=== PATIENT | female | born 1955 | race Caucasian/White ===

== ENCOUNTER → 2019-11-24 08:16 | Outpatient (CLI) | payer OTHER, SELFPAY ==
[2019-11-25 09:33] LABS: COVID19 Sendout Not Detected (Not Detect)
== END ==
PROVIDERS: PCP Internal Medicine; Visit Provider Physician Assistant
DX: Z11.59 Encounter for screening for other viral diseases (principal)
CPT/HCPCS: 87635

== ENCOUNTER 2019-11-27 08:12 | Day surgery (SDC) | payer OTHER, SELFPAY ==
[2019-11-22 13:52] VITALS: BMI 27.2
[2019-11-27] VITALS (19 sets, daily range): BP systolic 92–167; BP diastolic 53–108; PULSE 74–98; RESP 14–20; TEMP 35.8–36.5; O2SAT 94–100; BMI 27.3
--- NOTE | 2019-11-27 08:35 | DI.RAD.S_ITS ---
PROCEDURE: XR KNEE LT 1TO2V INDICATIONS: post op films TECHNIQUE: 2 view(s) of the knee acquired. [facility] [place] XR KNEE ARTHRITIC SERIES LT, 05/08/2019, 9:20. FINDINGS: Bones: Patient is status post knee joint arthroplasty. Hardware components are in expected positions. Visualized bony structures are intact. Soft tissues: Overlying postoperative changes are noted. IMPRESSION: Expected postoperative appearance. Dictated by: David Waters M.D. on 11/27/2019 at 16:59 Approved by: David Waters M.D. on 11/27/2019 at 17:00
[2019-11-27] MEDS: ACETAMINOPHEN 325 MG TABLET 975 MG PO (08:51)
[2019-11-27] MEDS: CELECOXIB 200 MG CAPSULE PO (08:52)
[2019-11-27] MEDS: LACTATED RINGERS 1,000 ML 42 ML IV (08:52)
--- NOTE | 2019-11-27 09:18 | PM.PREOP ---
Pre-operative Note COVID-19 COVID-19 status: Negative Result date/Date tested (Pos, Neg/Pending): 11/24/19 Interval Note History & Physical reviewed/Exam performed by Physician: Yes Changes to H&P: No
--- NOTE | 2019-11-27 09:49 | PM.OP.1 ---
Operative Date/Time/Diagnoses Date of procedure: 11/27/19 Time of procedure: 12:11 Pre-op diagnosis: Left knee osteoarthritis Post-op diagnosis: same Procedure & Clinicians Procedure: Left total knee replacement Same procedure as scheduled: Yes Indications: The patient has had progressively worsening left knee pain with radiographic changes consistent with arthritis. Non-operative management has failed and the patient has requested total knee replacement. The risks, benefits and alternatives to surgery were discussed with the patient prior to proceeding. Risks discussed included, but were not limited to, failure to relieve pain, stiffness, infection, nerve damage, deep venous thrombosis, pulmonary embolism, stroke, coma, heart attack, permanent paralysis and , as well as the potential need for eventual revision of the prosthetic. Surgeon: Vito Monreal Weaving Machine Operator: Lolita Redman Click Yes if Unassisted: No Anesthesia Type: General, Spinal and Local Operative Notes Findings: Severe lateral compartment osteoarthritis with moderate involvement of the patellofemoral joint and medial joint. Closure Type: primary Specimen(s): none sent Prosthetic devices, grafts, tissues, transplants, or devices: Implants used in this procedure were manufactured by the [employer] and included the BCS II Journey total knee replacement with a size 7 left Oxinium femoral component, a size 6 non porous tibial base plate, a 9 mm cross-linked polyethylene insert and a 32 mm oval Adamaris II patellar component. Applied: implant(s) Estimated Blood Loss (mL): 25 Blood products transfused: none Tourniquet time (min): 54 Procedure in detail: The patient was seen in the pre-operative area, where the left knee was identified as the operative site and this was marked with my initials. The patient received pre-operative antibiotics, and was taken to the operating room and placed on the operative table in the supine position. After satisfactory anesthesia, a chief of anesthesiology out? was performed. The left leg was encircled with a tourniquet about the proximal thigh, and the leg was prepared from the toes to the tourniquet with ChloroPrep in the usual fashion and draped through sterile drapes. The leg was elevated and exsanguinated with Eschmark bandage and the tourniquet inflated to 250 mmHg pressure. The knee was approached through an approximately 18 cm incision centered over the patella and carried into the knee through a medial parapatellar arthrotomy. The anterior osteophytes and soft tissues were removed. The rotational landmarks of Buckley's line and the transepicondylar axis were marked on the femur with electrocautery, and intramedullary guide holes for the femur and tibia were created. The distal femoral cut was made in 6 degrees of valgus using the intramedullary guide at the primary cut setting. The proximal tibial cut was then made using the intramedullary guide, taking 7 mm of bone off the less involved medial side. The extension gap was checked and the rotation of the femoral component confirmed with the gap balancing blocks. The anterior, posterior and chamfer cuts were then made. The posterior osteophytes and soft tissues were then removed. The posterior capsule was injected with part of a mixture of 60 ml 0.25% Marcaine mixed with 20 ml Exparel and 4 mg of morphine for post-operative pain control. The remainder of this mixture was injected into the capsule and subcutaneous tissues during cement curing. The tibia was prepared with the rotation set by an extra medullary guide. Trial tibial and femoral components were then placed and the intercondylar notch cut through the femoral trial. Range of motion was 0-135 degrees, with good stability throughout the range. The patella was then cut to accommodate the patellar prosthetic. There was no need for a lateral release. The trials were then removed, and the femoral hole plugged with a bone plug. The bone was prepared with pulsatile lavage, and dried with a sponge. Cement was applied and the final prosthetics placed. Excess cement was removed during and after cement curing. After confirming there was no extruded cement posteriorly, the final tibial insert was placed. The knee was copiously irrigated and the tourniquet deflated. Hemostasis was obtained. The capsule was closed with interrupted # 2 polyester sutures. The subcutaneous layer was closed with 3-0 Vicryl, and the skin with a running 3-0 V-Lock suture and Dermabond. An Aquacel Ag dressing was applied and the patient was taken to recovery having tolerated the procedure well. Complications: none Post-operative Condition: stable Disposition: PACU Plan for aftercare: The patient will be maintained on a standard total knee replacement protocol with weight bearing as tolerated. The patient will receive aspirin and sequential compression devices for DVT prophylaxis. The patient will be discharged home when safe for the home environment.
[2019-11-27] MEDS: CEFAZOLIN 2 GM/100 ML FROZ.PIGGY IV (10:25)
[2019-11-27] MEDS: TRANEXAMIC ACID 1,000 MG VIAL 1000 MG INJ ×2 (10:39→11:44)
--- NOTE | 2019-11-27 10:52 | SUR.OPER ---
Supine on padded OR bed. Pillow under head, arms secured on padded armboards <90 degree abduction. Safety belt across torso. Non-operative leg secured with tape over blanket over lower leg. Operative leg secured in DeMayo/Jose positioner.
[2019-11-27] MEDS: MORPHINE 4 MG/ML INJ INJ (11:01)
[2019-11-27] MEDS: BUPIVACAINE LIPOSOME 266 MG/20 ML VIAL INJ (11:01)
[2019-11-27] MEDS: BUPIVACAINE 0.25% W/ EPI 30 ML VIAL 60 ML INJ (11:01)
[2019-11-27] MEDS: HYDROMORPHONE 2 MG INJ IV ×8 (12:28→13:13)
[2019-11-27] MEDS: OXYCODONE IR 5 MG TABLET PO ×2 (12:32→13:00)
--- NOTE | 2019-11-27 13:04 | SUR.PHASEI ---
Patient arrived in PACU w c\o 10\[address] Francois gave 100 mcg of fentanyl. Patient cont to c\o 10\10 pain after I gave 2 mg Diluadid and po oxycodone.
--- NOTE | 2019-11-27 13:27 | SUR.PHASEI ---
Patient is crying. When I ask what is wrong she told me she just feels emotional. Patient refusing nasal cannula. States she is claustraphobic.
--- NOTE | 2019-11-27 14:02 | SUR.PHASEI ---
Report given and patient transferred. Patient stopped crying and rated pain 8/10. Patient stated she was crying 2 to lawsuit regarding operation.
[2019-11-27] MEDS: LACTATED RINGERS 1,000 ML 100 ML IV (14:31)
[2019-11-27] MEDS: ACETAMINOPHEN 325 MG TABLET 650 MG PO ×2 (14:34→21:20)
[2019-11-27] MEDS: IBUPROFEN 400 MG TABLET PO ×2 (16:18→21:20)
[2019-11-27] MEDS: OXYCODONE IR 10 MG TABLET PO ×2 (16:18→19:17)
--- NOTE | 2019-11-27 17:03 | PT.IIE ---
Current Diagnoses Unilateral post-traumatic osteoarthritis, left knee (11/27/19) Other tear of lateral meniscus, current injury, right knee, sequela (11/27/19) Surgery Performed Operation Date: 11/27/19 10:15 Actual Procedures p Total Knee Arthroplasty(Left) - Vito Monreal MD Surgical History (Last Updated 11/24/19 @ 11:09 by Shabnam Ruiz, RN) History of bilateral carpal tunnel release (Acute) History of (Acute) Hx of appendectomy (Acute) Hx of arthroscopy of left knee (Acute) Medical History (Last Updated 11/24/19 @ 11:12 by Shabnam Ruiz RN) HTN (hypertension) (Acute) IBS (irritable bowel syndrome) (Acute) Osteoarthritis (Acute) RBBB (right bundle branch block) (Acute) Seasonal allergies (Acute) Physical Therapy Inpatient Evaluation/Re-Eval M1 PT/OT-IP Prior Functional Status Start: 11/27/19 16:13 Freq: NEEDED Status: Active Protocol: Document 11/27/19 16:46 AW (Rec: 11/27/19 17:03 AW [email or web address]) Medical Review Prior Functional Status Medical History Reviewed Yes Communication No known deficits. Mobility and Gait Independent without AD and without distance or time limit for ambulation. Activities of Daily Living and IADL's Independent Social History Household Members none Living Arrangements House Number of Floors (Floors) Two Floors Number of Stairs To Enter/Railing? 8 ISABEL with wide bilateral rails. Pt enters on level with living room, kitchen, guest bedroom. She climbs 8 steps with a wall for support on her left side to the level with her bedroom. 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 She lives alone in [facility]. Her son, Henry, will be checking on her a few times a day but no one is planning to stay with the pt at discharge. M2 PT-IP Current Condition Start: 11/27/19 16:13 Freq: NEEDED Status: Active Protocol: Document 11/27/19 16:46 AW (Rec: 11/27/19 17:03 AW [email or web address]) Physical Therapy Current Condition Current Condition Evaluation Date 11/27/19 Treatment Diagnosis L TKA; difficulty in walking Onset Date 11/27/19 Weight Bearing Status Weight Bearing Status Weight Bear as Tolerated M3 PT-IP Subjective Start: 11/27/19 16:13 Freq: NEEDED Status: Active Protocol: Document 11/27/19 16:46 AW (Rec: 11/27/19 17:03 AW [email or web address]) Subjective Physical Therapy Visit Type Type Initial Evaluation Visit Start Time 16:20 Visit Stop Time 16:44 Total Visit Minutes 24 Physical Therapy Visit Comments Patient Comments Pt is willing to participate with PT Patient Goals To go home with limited assist . Therapy Pain Assessment Pain When Pain Assessed During Mobility Pain Present Pain Present Pain Reported Location Left Knee Intensity 6 Pain Behaviors Facial Grimacing,Wincing Pain Management Techniques Apply Cold,Timing of Activity with Medications M4 PT-IP Mobility and Gait Start: 11/27/19 16:13 Freq: NEEDED Status: Active Protocol: Document 11/27/19 16:46 AW (Rec: 11/27/19 17:03 AW [email or web address]) PT-Bed Mobility Assessment Supine to Sit Supine to Sit Standby Assistance,Head of Bed Elevated Scooting Scooting to Edge of Bed Standby Assistance PT-Transfer Assessment Sit to and From Stand Sit to and from Stand Contact Guard Assistance Equipment Transfer Assistive Device Gait Belt,Front Wheeled Walker Orthotic/Prosthetic Devices or Brace: No Transfers Transfer Destination Chair Transfer Technique pt ambulated with FWW Transfer Ability Level of Assist Contact Guard Assistance,1 Person Assistance,Use of Upper Extremities Comments Mobility Comments Pt was sitting up in bed when PT arrived. BP was 114/68 HR 93. Pt states she has an adjustable bed at home. She completed supine to sit with HOB elevated SBA and sat EOB without UE support. She stood from the bed with FWW CGA and practiced weight shifting in standing. She then advanced the walker and ambulated in the room a total of 15 feet including a tight turn with FWW SBA before transferring to the chair CGA. Pt reported increased pain and fatigue and requested to stay in the chair. BP after activity was 132/72 HR 96. She was positioned in the chair with call light and all needs in reach. Gait Assessment Gait Gait Assistance Required: Standby Assistance Distance (Feet) 15 Able to Maintain Weight Bearing Status Yes During Gait Assistive Devices Assistive Device Gait Belt,Front Wheeled Walker Orthotic/Prosthetic Devices or Brace: No Gait Deviations General Gait Pattern Antalgic,Decreased Stride Length,Decreased Feet Clearance,Flexed Trunk,Step-to Gait Factors Limiting Gait Function Factors Limiting Gait Function Decreased Activity Tolerance, Decreased Strength,Limited Range of Motion,Pain,Poor Balance Comments Gait Comments See mobility comments for details. Stair Climbing Assessment Comments Stair Climbing Comments Not assessed due to pt pain and fatigue. PT-Balance Assessment Sitting Balance and Reactions Static Sitting Balance Ability Normal Dynamic Sitting Balance Ability Normal Standing Balance and Reactions Static Standing Balance Ability Good Dynamic Standing Balance Ability Good Device Used FWW M5 PT-IP Objective Assessments Start: 11/27/19 16:13 Freq: NEEDED Status: Active Protocol: Document 11/27/19 16:46 AW (Rec: 11/27/19 17:03 AW [email or web address]) Orientation Orientation/Cognition Level of Alertness Alert Orientation Name,Day of Week,Place, Situation Language Function Ability No Deficits Noted Safety Awareness Understands Safety Issues Memory Description No Deficits Noted Gross Range of Motion Upper Extremity ROM Assessment Within Functional Limits Lower Extremity ROM Assessment Left Impaired Strength Upper Extremity Strength Assessment Within Functional Limits Lower Extremity Strength Assessment Left Impaired Comments Strength Comments RLE grossly 5/5 Coordination Assessment Gross Coordination Gross Coordination WNL Sensation Assessment Sensation Gross Sensation WNL Muscle Tone Muscle Tone WNL Yes M6 PT-IP Treatment Start: 11/27/19 16:13 Freq: NEEDED Status: Active Protocol: Document 11/27/19 16:46 AW (Rec: 11/27/19 17:03 AW [email or web address]) Physical Therapy Treatment Exercises Exercises Ankle Pumps,Quad Sets,Heel Slides,Passive Knee Extension Hang Education Education Provided Precautions,Weight Bearing Status,Post-Op Packet,Safety Other Treatments Other Treatment Performed Provided education on role of PT, plan of care, weightbearing status, and safe use of FWW. M7 PT-IP Assessment and Plan Start: 11/27/19 16:13 Freq: NEEDED Status: Active Protocol: Document 11/27/19 16:46 AW (Rec: 11/27/19 17:03 AW [email or web address]) PT Summary Assessment and Plan Potential Rehabilitation Potential Good Status of Condition at Evaluation Evolving Summary Impairments Pain,ROM,Strength,Balance,Bed Mobility,Transfers,Gait, Activity Tolerance Assessment Summary Isaura is a 63 yo woman seen for PT evaluation on POD0 following L TKA. She is independent in all regards at baseline. On evaluation, she required SBA to CGA with all mobility which was limited due to pain and fatigue. Pt states her son will check on her as needed when she goes home but she has not planned for anyone to stay with her. PT anticipates she will be safe to discharge to home environment with assist and outpatient PT once medically cleared. Pt must clear stairs before discharge. She may need to consider staying on level vial marker if unable to manage stairs independently. Goals Bed Mobility Goal Independent Transfer Goal Independent,Front Wheeled Walker Gait Goal Independent,Front Wheel Walker Gait Distance 150 Other Goals - up/down 16 stairs with left rail ascending IND Days to Meet Goals 3 Frequency of Treatment Frequency Of Treatment Twice a Day Treatment Plan Physical Therapy Treatment Plan Bed Mobility Training,Transfer Training,Gait Training, Therapeutic Exercise,Balance Retraining,Post Op Education, Discharge Planning,Hot or Cold Pack Other Recommendations and Next Treatment gait training with FWW; stair Focus training; review ther ex Recommendations To Nursing Amount of Assist Needed 1 Person Assist Discharge Recommendations PT Discharge Recommendations Home with Assistance, Outpatient PT Equipment Needed for Home Before may need raised toilet seat Discharge Transportation Needs at Discharge Private Vehicle
[2019-11-27] MEDS: DULOXETINE 20 MG CAPSULE PO (21:20)
[2019-11-27] MEDS: DOCUSATE 100 MG CAPSULE PO (21:20)
[2019-11-27] MEDS: ALPRAZolam 0.5 MG TABLET 1 MG PO (23:57)
[2019-11-28] VITALS: BP 127/60; PULSE 78
[2019-11-28] MEDS: LACTATED RINGERS 1,000 ML 100 ML IV (01:25)
[2019-11-28] MEDS: OXYCODONE IR 10 MG TABLET PO ×3 (04:56→11:24)
[2019-11-28 05:30] VITALS: BP 117/76; PULSE 82; RESP 16; TEMP 36.6; O2SAT 98
[2019-11-28 05:48] LABS: Hematocrit 31.2 % (36-46); Hemoglobin 10.6 g/dL (12.0-16.0)
[2019-11-28] MEDS: LEVOTHYROXINE 100 MCG TABLET PO (05:53)
--- NOTE | 2019-11-28 07:54 | PM.DS.1 ---
History of Present Illness History of Present Illness Date Patient Seen: 11/28/19 Time Patient Seen: 07:54 Chief complaint: LT TKA *OPB* Narrative: The history and physical is contained in the chart and her previously completed note. Please refer to that note for this information. Discharge Providers Provider Discharge Date: 11/28/19 Primary care physician: Camron Daniel MD Consults: 11/27/19 08:35 Consult to Anesthesiology Routine Comment: Consulting Provider: Anesthesiologist Reason for consultation: Regional block for post operative pain control 11/27/19 13:57 Consult to Discharge Planning Routine Comment: Consult to Physical Therapy Evaluate & Treat Comment: Physician Instructions: postop TKA protocol Discharge provider: Vito Monreal MD Summary Hospital Course Discharge Diagnosis: 1. Left knee posttraumatic osteoarthritis 2. Post hemorrhagic anemia Hospital Course: The patient was admitted to the hospital and taken directly to the operating room where she underwent a left total knee replacement without complications. On postoperative day 1 she had reasonable pain control. She was awaiting physical therapy. The patient has a flight of stairs to get into her home and 1 that must be negotiated when she is in the home. At the time of this dictation the plan is for discharge later today if she manages well enough with physical therapy to make it safe. Status at Discharge Cognitive/behavioral status at discharge: oriented Functional status at discharge: uses cane/walker Overall status at discharge: patient is progressing back to baseline Time Spent with Patient Time spent: Less than 30 minutes Exam Vital Signs (past 8 hours): - 11/27/19 23:55 11/28/19 00:00 11/28/19 05:30 Temperature 97.7 F 97.8 F Pulse Rate 78 82 Respiratory Rate 18 16 Blood Pressure 103/56 L 127/60 117/76 Pulse Oximetry 96 98 Oxygen Delivery Method Room Air Oxygen Flow Rate 0 Narrative Exam Narrative: Left knee wound is dressed with no drainage on the bandage. Calf is soft. Light touch and motion are intact in the left lower extremity. Objective Labs Result Diagrams: 11/28/19 04:44 Labs: Laboratory Results - last 24 hr 11/28/19 04:44 Hgb 10.6 L Hct 31.2 L Discharge Assessment & Plan Assessment and Plan Assessment: Stable postoperative day 1 status post left total knee replacement. She has the anticipated post hemorrhagic anemia. Plan of Treatment: Physical therapy today. Likely discharge home provided she is able to satisfactorily managed stairs. Discharge prescriptions for oxycodone and Vistaril have been printed. Follow-up will be in my office in 10-14 days. Discharge Plan Discharge Plan Patient Disposition: Home Discharge Med Rec/Prescriptions Prescriptions: New acetaminophen 325 mg Tablet 650 mg PO TID 30 Days Qty: 180 RF: 0 ibuprofen 400 mg Tablet 400 mg PO Q4HR 30 Days RF: 0 oxycodone 5 mg Tablet 5 mg PO Q4H PRN (Reason: Pain, Moderate (4-6)) Qty: 40 RF: 0 hydroxyzine pamoate 25 mg Capsule 25 mg PO Q6HR PRN (Reason: Nausea) Qty: 40 RF: 0 Continued fexofenadine [Princess Allergy] 60 mg Tablet 60 mg PO BID PRN (Reason: Seasonal allergies) RF: 0 aspirin 325 mg Tablet 325 mg PO DAILY RF: 0 alprazolam 1 mg Tablet 1 mg PO BEDTIME PRN (Reason: Sleep) RF: 0 spironolactone 100 mg Tablet 100 mg PO DAILY RF: 0 potassium chloride 10 mEq Tablet Extended Release 10 meq PO DAILY RF: 0 ondansetron 8 mg Tablet,Disintegrating 8 mg PO Q8H PRN (Reason: Nausea) RF: 0 hydrochlorothiazide 25 mg Tablet 25 mg PO DAILY RF: 0 metoprolol succinate 25 mg Tablet Extended Release 24 Hr 25 mg PO DAILY RF: 0 duloxetine 20 mg Capsule,Delayed Release(Dr/Ec) 20 mg PO BID RF: 0 levothyroxine 100 mcg Capsule 100 mcg PO DAILY RF: 0 acyclovir 400 mg Tablet 800 mg PO Q4H PRN (Reason: Breakout/flareup) RF: 0 Discontinued hydrocodone-acetaminophen 5-325 mg Tablet 2 tab PO Q4-6H PRN (Reason: Pain) RF: 0 Follow up/Referrals: Vito Monreal MD [Physician] - 2 Weeks Discharge Orders: Discharge (Order); Ordered 11/28/19 Ordered By: Vito Monreal Provider Discharge Instructions Diet: Diet as Tolerated and Regular Activity: You may bear weight as tolerated on your left leg Cold/Heat Therapy: Apply ice for 15 minutes of every hour as needed to the left knee. Skin/Wound/Dressing Care Report to your healthcare provider any signs of infection, such as:: chills, fever, night sweats, increased pain, unusual drainage and unusual redness Dressing: Remove the Edu wrap 3 days after surgery. You may then shower normally. Leave the deeper dressing in place until follow-up. If the center strip of the deeper dressing becomes saturated with either water or blood, please call the office to have it evaluated. Visit Report/Discharge Packet Instructions: DI for Knee Replacement Stand Alone Forms: Surgery Discharge Discharge Data Primary Care Provider: Camron Daniel Attending Provider: Vito Monreal Quality VTE Deep Vein Thrombosis/Pulmonary Embolism Present on Admission: No
[2019-11-28 08:00] VITALS: BP 111/63; PULSE 69; RESP 15; TEMP 36.7; O2SAT 97
[2019-11-28] MEDS: DOCUSATE 100 MG CAPSULE PO (08:25)
[2019-11-28] MEDS: SPIRONOLACTONE 50 MG TABLET 100 MG PO (08:25)
[2019-11-28] MEDS: DULOXETINE 20 MG CAPSULE PO (08:25)
[2019-11-28] MEDS: POTASSIUM CHLORIDE 10 MEQ TAB PO (08:26)
[2019-11-28] MEDS: hydroCHLOROthiazide 25 MG TABLET PO (08:26)
[2019-11-28] MEDS: METOPROLOL ER 25 MG TABLET PO (08:26)
[2019-11-28] MEDS: ASPIRIN 325 MG TABLET PO (08:26)
[2019-11-28] MEDS: ACETAMINOPHEN 325 MG TABLET 650 MG PO (08:26)
[2019-11-28] MEDS: LORATADINE 10 MG TABLET PO (08:27)
--- NOTE | 2019-11-28 10:23 | PT.IPTN ---
Current Diagnoses Unilateral post-traumatic osteoarthritis, left knee (11/27/19) Other tear of lateral meniscus, current injury, right knee, sequela (11/27/19) Surgery Performed Operation Date: 11/27/19 10:15 Actual Procedures p Total Knee Arthroplasty(Left) - Vito Monreal MD Physical Therapy Treatment Note M2 PT-IP Current Condition Start: 11/27/19 16:13 Freq: NEEDED Status: Active Protocol: Document 11/27/19 16:46 AW (Rec: 11/27/19 17:03 AW [id number]) Physical Therapy Current Condition Current Condition Evaluation Date 11/27/19 Treatment Diagnosis L TKA; difficulty in walking Onset Date 11/27/19 Weight Bearing Status Weight Bearing Status Weight Bear as Tolerated M3 PT-IP Subjective Start: 11/27/19 16:13 Freq: NEEDED Status: Active Protocol: Document 11/28/19 09:52 KS (Rec: 11/28/19 11:55 KS [id number]) Subjective Physical Therapy Visit Type Type Treatment Note Visit Start Time 09:52 Visit Stop Time 10:23 Total Visit Minutes 31 Number of DIRECTOR OF QUALITY CONTROL Visits 1 Physical Therapy Visit Comments Patient Comments Pt is willing to participate with PT Patient Goals To go home with limited assist . M4 PT-IP Mobility and Gait Start: 11/27/19 16:13 Freq: NEEDED Status: Active Protocol: Document 11/28/19 09:52 KS (Rec: 11/28/19 11:55 KS [id number]) PT-Bed Mobility Assessment Sit to Supine Sit to Supine Standby Assistance Scooting Scooting to Edge of Bed Standby Assistance PT-Transfer Assessment Sit to and From Stand Sit to and from Stand Standby Assistance Equipment Transfer Assistive Device Gait Belt,Front Wheeled Walker Orthotic/Prosthetic Devices or Brace: No Transfers Transfer Destination Bed,Wheelchair Transfer Technique pt ambulated with FWW Transfer Ability Level of Assist Standby Assistance,1 Person Assistance,Use of Upper Extremities Comments Mobility Comments Pt leaving bathroom upon arrival from therapy and able to ambulate to sink and reamin balanced for hygiene SBA. Pt then ambulated to and stand<> sit in w/c SBA for transfer to stairs for energy conservation. Pt then ascended /descended 3 steps w/ L rail and step to pattern SBA w/o cues needed. Pt completed stairs 3 times, totaling 9 steps all SBA. Pt then transported back to room in w/ c and then ambulated from w/c to bed SBA. PT returned to bed stand<>sit and sit<>sup all SBA. Pt left in bed w/ ice applied to L knee. Gait Assessment Gait Gait Assistance Required: Standby Assistance Distance (Feet) 50 Able to Maintain Weight Bearing Status Yes During Gait Assistive Devices Assistive Device Gait Belt,Front Wheeled Walker Orthotic/Prosthetic Devices or Brace: No Gait Deviations General Gait Pattern Antalgic,Decreased Stride Length,Decreased Feet Clearance,Flexed Trunk,Step-to Gait Factors Limiting Gait Function Factors Limiting Gait Function Decreased Activity Tolerance, Decreased Strength,Limited Range of Motion,Pain,Poor Balance Comments Gait Comments See mobility comments for details. Stair Climbing Assessment Evaluation Level of Assist On Stairs Standby Assistance,1 Person Assistance Devices Stair Climbing Assistive Devices Left Railing Technique/Endurance Stair Climbing Direction Ascend and Descend Stair Climbing Technique Step to Step Number of Steps Climbed 3 Stair Climbing Set # Repetitions (reps) 3 Comments Stair Climbing Comments Pt ascended/descended 3 steps x3 w/ BUE using L rail. Pt did not require any cues during stairs and had no LOB. Pt has 8 stairs to enter house and can rest following entrance steps before ascending 8 steps to bedroom. Pt states she feels safe to perform stairs at home and her son will help her if needed. PT-Balance Assessment Sitting Balance and Reactions Static Sitting Balance Ability Normal Dynamic Sitting Balance Ability Normal Standing Balance and Reactions Static Standing Balance Ability Good Dynamic Standing Balance Ability Good Device Used FWW M5 PT-IP Objective Assessments Start: 11/27/19 16:13 Freq: NEEDED Status: Active Protocol: Document 11/27/19 16:46 AW (Rec: 11/27/19 17:03 AW [id number]) Orientation Orientation/Cognition Level of Alertness Alert Orientation Name,Day of Week,Place, Situation Language Function Ability No Deficits Noted Safety Awareness Understands Safety Issues Memory Description No Deficits Noted Gross Range of Motion Upper Extremity ROM Assessment Within Functional Limits Lower Extremity ROM Assessment Left Impaired Strength Upper Extremity Strength Assessment Within Functional Limits Lower Extremity Strength Assessment Left Impaired Comments Strength Comments RLE grossly 5/5 Coordination Assessment Gross Coordination Gross Coordination WNL Sensation Assessment Sensation Gross Sensation WNL Muscle Tone Muscle Tone WNL Yes M6 PT-IP Treatment Start: 11/27/19 16:13 Freq: NEEDED Status: Active Protocol: Document 11/28/19 09:52 KS (Rec: 11/28/19 11:55 KS [id number]) Physical Therapy Treatment Exercises Exercises Ankle Pumps,Quad Sets Education Education Provided Precautions,Weight Bearing Status,Post-Op Packet,Safety M7 PT-IP Assessment and Plan Start: 11/27/19 16:13 Freq: NEEDED Status: Active Protocol: Document 11/28/19 09:52 KS (Rec: 11/28/19 11:55 KS [id number]) PT Summary Assessment and Plan Potential Rehabilitation Potential Good Status of Condition at Evaluation Evolving Summary Impairments Pain,ROM,Strength,Balance,Bed Mobility,Transfers,Gait, Activity Tolerance Progress Towards Goals Progressing Toward Goals Assessment Summary Pt is SBA for all mobility, transfers, ambulation, and stairs and demonstrated good safety awareness as well as proper use of FWW. Pt completed 9 total steps w/ SBA and use of L rail w/ BUE. Pt states she feels safe to return home, has outpatient rehab set up and that her son and several friends will be able to help her as needed. Goals Bed Mobility Goal Independent Transfer Goal Independent,Front Wheeled Walker Gait Goal Independent,Front Wheel Walker Gait Distance 150 Other Goals - up/down 16 stairs with left rail ascending IND Days to Meet Goals 3 Frequency of Treatment Frequency Of Treatment Twice a Day Treatment Plan Physical Therapy Treatment Plan Bed Mobility Training,Transfer Training,Gait Training, Therapeutic Exercise,Balance Retraining,Post Op Education, Discharge Planning,Hot or Cold Pack Other Recommendations and Next Treatment gait training with FWW; review Focus ther ex Recommendations To Nursing Amount of Assist Needed 1 Person Assist Discharge Recommendations PT Discharge Recommendations Home with Assistance, Outpatient PT Equipment Needed for Home Before may need raised toilet seat Discharge Transportation Needs at Discharge Private Vehicle
[2019-11-28] MEDS: hydrOXYzine pamoate 25 MG CAPSULE PO (10:37)
[2019-11-28 11:33] VITALS: BP 117/68; PULSE 74; RESP 15; TEMP 36.2; O2SAT 99
--- NOTE | 2019-11-28 13:54 | PC.NURSE ---
Went over dc meds and instructions with patient, questions answered. Rx given and faxed to [facility], patient taken via WC to vehicle driven by son, patient had all belongings.
== END 2019-11-28 13:55 | disposition home or self-care (01) ==
LOC: OR 08:14 → AC 08:15
PROVIDERS: PCP Internal Medicine; Referring Provider Orthopaedic Surgery; Visit Provider Orthopaedic Surgery
PROC: 0SRD0JZ Replacement of Left Knee Joint with Synthetic Substitute, Open Approach (ICD-10-PCS; CPT 27447; principal; 2019-11-27 10:15)
DX: M17.32 Unilateral post-traumatic osteoarthritis, left knee (principal); I10 Essential (primary) hypertension; K58.9 Irritable bowel syndrome, unspecified
CPT/HCPCS: 27447; 36415; 73560; 85014; 85018; 97116; 97161; 97530; C1776; C9290; J0690; J1100; J1170; J2250; J2270; J2274; J2405; J2704; J3010